=== PATIENT | male | born 1960 | race Caucasian/White ===

== ENCOUNTER 2021-04-16 17:12 | Emergency (ER) | payer OTHER ==
[~2021-04-16] VITALS: Ht 175.3 cm; Wt 94.1 kg
--- NOTE | 2021-04-16 18:21 | REP ---
INDICATION: PAIN/DEFORMITY COMPARISON: None. TECHNIQUE: AP, lateral, bilateral oblique views. FINDINGS: Oblique fracture of the distal fibular metadiaphysis with overlying soft tissue swelling. Remainder of the examination is age-appropriate. IMPRESSION: Oblique fracture of the distal fibular metadiaphysis with overlying soft tissue swelling. <Electronically signed by Damien Salomon > 04/16/21 0810
[2021-04-16 23:51] VITALS: BP 133/79
== END 2021-04-16 23:54 | disposition short-term general hospital (02) ==
LOC: M ED 17:12
DX: S82.431A Displaced oblique fracture of shaft of right fibula, initial encounter for closed fracture (principal); W18.39XA Other fall on same level, initial encounter; Y92.018 Other place in single-family (private) house as the place of occurrence of the external cause
CPT/HCPCS: 73610; 99284; U0002